=== PATIENT | male | born 1945 | race Two or more races ===

== ENCOUNTER 2020-12-26 07:15 | Day surgery (SDC) | payer OTHER ==
[~2020-12-26 07:15] MED LIST: DAILY VALUE1 EACH PO; VITAMIN D PO
[2020-12-26] MEDS ORDERED: PERCOCET 5-3251 EACH PO (09:45)
== END 2020-12-26 12:25 | disposition home or self-care (01) ==
LOC: CIR.AMB 07:15
PROVIDERS: ATTEND Surgery
DX: T82.898A Other specified complication of vascular prosthetic devices, implants and grafts, initial encounter (principal); Z20.822 Contact with and (suspected) exposure to COVID-19
CPT/HCPCS: 36561; 36590; C1751